=== PATIENT | male | born 1995 | race Caucasian/White ===

== ENCOUNTER 2017-01-21 15:01 | Emergency (ER) | payer SELFPAY ==
--- NOTE | 2017-01-21 15:38 | ED Physician Chart ---
Chief Complaint/HPI - Patient Information Date Seen:: 01/21/17 Time Seen:: 15:33 Chief Complaint:: numbness History of Present Illness:: pt was about to have sex w his gf(baby mom) a hr ago and had onset of tingly feeling over both sides of face/body. very anxious and doesnt feel right. no meds tried/taken. no mj pmh x anxiety and a 1x hx of renal failure which was txd w dialysis 1x in 2014. no edema. no OSULLIVAN. no cp. no uri sx. no fever. no rash. Vitals:: Vital Signs - 8 hr 01/21/17 15:01 Temp 97.9 F HR 71 RR 16 BP 155/87 O2 Sat % 100 Historian:: Patient, Other (gf/baby mom) Review of Systems - Review of Systems General/Constitutional: No fever, No chills, No weight loss, No weakness, No diaphoresis, No edema, No loss of appetite Skin: No skin lesions, No rash, No bruising Head: No headache, No light-headedness Eyes: No loss of vision, No pain, No diplopia ENT: No earache, No nasal drainage, No sore throat, No tinnitus Neck: No neck pain, No swelling, No thyromegaly, No stiffness, No mass noted Cardio Vascular: No chest pain, No palpitations, No PND, No orthopnea, No edema Pulmonary: SOB, No SOB, No cough, No sputum, No wheezing GI: No nausea, No vomiting, No diarrhea, No pain, No melena, No hematochezia, No constipation, No hematemesis G/U: No dysuria, No frequency, No hematuria Musculoskeletal: No bone or joint pain, No back pain, No muscle pain Endocrine: No polyuria, No polydipsia Psychiatric: No prior psych history, No depression, Anxiety, No suicidal ideation, No homicidal ideation, No auditory hallucination, No visual hallucination Hematopoietic: No bruising, No lymphadenopathy Allergic/Immuno: No urticaria, No angioedema Neurological: No syncope, No focal symptoms, No weakness, Paresthesia, No paresthesia, No headache, No seizure, No dizziness, No confusion, No vertigo Past Medical History - Past Medical History Past Medical History: Other (anxiety , 1x hx of renal issue 2015 txd w dialysis( details poor on hx)) Social History: Non Smoker, No Alcohol Psychiatricy History: Other (anxiety) Medication: Reviewed Family Medical History - Family Member Mother Other Medical History: denies family medical hx Physical Exam - Physical Examination General/Constitutional: Awake, Well-developed, well-nourished, Alert, No distress, GCS 15, Non-toxic appearing, Ambulatory Other Gen/Cons comments:: anxious. pt claims very weak and cant raise leg vs gravity..however if i straight leg raise his lower leg remains straight and doesnt drop. (pt appears to have no fxnal muscle loss). str/sens seem wnl. cn 2-12 wnl Head: Atraumatic Eyes: Lids, conjuctiva normal, PERRL, EOMI Skin: Nl inspection, No rash, No skin lesions, No ecchymosis, Well hydrated, No lymphadenopathy ENMT: External ears, nose nl, Nasal exam nl, Lips, teeth, gums nl Neck: Nontender, Full ROM w/o pain, No JVD, No nuchal rigidity, No bruit, No mass, No stridor Respiratory: Nl effort/Exclusion, Clear to Auscultation, No Wheeze/Rhonchi/Rales Cardio Vascular: RRR, No murmur, gallop, rubs, NL S1 S2 GI: No tenderness/rebounding/guarding, No organomegaly, No hernia, Normal BS's, Nondistended, No mass/bruits, No McBurney tenderness : No CVA tenderness Extremities: No tenderness or effusion, Full ROM, normal strength in all extremities, No edema, Normal digits & nails Neuro/Psych: Alert/oriented, DTR's symmetric, Normal sensory exam, Normal motor strength, Judgement/insight normal, Mood normal, Normal gait, No focal deficits Misc: normal gait, Normal back, No paraspinal tenderness Labs/Radiology/EKG Results - Lab Results Results: Laboratory Tests 01/21/17 01/21/17 01/21/17 15:41 15:41 15:41 WBC 12.6 H RBC 5.51 Hgb 16.9 Hct 49.3 H MCV 89.5 MCH 30.8 H MCHC Differential 34.4 RDW 12.1 Plt Count 212 MPV 8.5 Neutrophils % 76.3 Lymphocytes % 14.5 L Monocytes % 7.9 Eosinophils % 0.9 Basophils % 0.4 Sodium 136 Potassium 3.5 Chloride 105 Carbon Dioxide 26.8 Anion Gap 7.7 BUN 10 Creatinine 1.0 Est GFR ( Amer) > 60.0 Est GFR (Non-Af Amer) > 60.0 BUN/Creatinine Ratio 10.0 Glucose 91 Whole Bld Lactic Acid 1.43 Calcium 10.3 Total Bilirubin 1.2 H AST 24 ALT 27 Alkaline Phosphatase 102 Troponin I Total Protein 8.8 H Albumin 4.9 Globulin 3.9 Albumin/Globulin Ratio 1.3 01/21/17 15:41 WBC RBC Hgb Hct MCV MCH MCHC Differential RDW Plt Count MPV Neutrophils % Lymphocytes % Monocytes % Eosinophils % Basophils % Sodium Potassium Chloride Carbon Dioxide Anion Gap BUN Creatinine Est GFR ( Amer) Est GFR (Non-Af Amer) BUN/Creatinine Ratio Glucose Whole Bld Lactic Acid Calcium Total Bilirubin AST ALT Alkaline Phosphatase Troponin I 0.01 Total Protein Albumin Globulin Albumin/Globulin Ratio - Radiology Results Results: ct head nad - EKG Interpretations EKG Time:: 16:00 Rate & Rhythm: nsr 71 [place]: 45 Intervals: minor st elev w upward concavity v2/3 likely benign repol ED Septic Shock - . Is Septic Shock (SBP<90, OR Lactate>4 mmol\L) present?: No - <6hrs of presentation: Vital Signs: Vital Signs - 8 hr 01/21/17 15:01 Temp 97.9 F HR 71 RR 16 BP 155/87 O2 Sat % 100 Reassessment (Disposition) - Reassessment Reassessment Condition:: Improved - Diagnosis Diagnosis:: anxiety attack - Aftercare/Follow up Instructions Aftercare/Follow-Up Instructions:: Counseled pt & family regarding lab results/ diagnosis & need follow up Medication Prescribed:: ativan 0.5mg no 15 - Patient Disposition Discharge/Transfer:: Home Condition at Disposition:: Improved
[2017-01-21 15:53] LABS: % BASOPHILS 0.4 % (0.0-2.0); % EOSINOPHILS 0.9 % (0.0-5.0); % LYMPHOCYTES 14.5 % (20.0-50.0); % MONOCYTES 7.9 % (2.0-10.0); % NEUTROPHILS 76.3 % (40.0-80.0); HEMATOCRIT 49.3 % (39.0-49.0); HEMOGLOBIN 16.9 gm/dL (13.2-17.3); MEAN CELL VOLUME 89.5 fl (80-99); MEAN CORPUSCULAR HEMOGLOBIN 30.8 pg (26.0-30.0); MEAN CORPUSCULAR HGB CONC 34.4 pg (28.0-36.0); MEAN PLATELET VOLUME 8.5 fl; NEUTROPHILE ABSOLUTE 9.6 Th/cmm (1.8-8.0); PLATELET COUNT 212 Th/cmm (150-400); RED BLOOD COUNT 5.51 Mil/cmm (4.30-5.70); RED CELL DISTRIBUTION WIDTH 12.1 % (11.5-20.0)
[2017-01-21 15:57] LABS: WHITE BLOOD COUNT 12.6 Th/cmm (4.8-10.8)
[2017-01-21 16:05] LABS: ALB/GLOB RATIO 1.3 (1.0-1.8); ALKALINE PHOSPHATASE 102 U/L (34-104); ANION GAP 7.7 (7.0-16.0); BILIRUBIN,TOTAL 1.2 mg/dL (0.3-1.0); BUN - UREA NITROGEN 10 mg/dL (7-25); CALCIUM SERUM 10.3 mg/dL (8.6-10.3); CARBON DIOXIDE 26.8 mEq/L (21.0-31.0); CHLORIDE 105 mEq/L (98-107); GLUCOSE 91 mg/dL (70-105); POTASSIUM SERUM 3.5 mEq/L (3.5-5.1); SGOT 24 U/L (13-39); SGPT/ALT 27 U/L (7-52); SODIUM SERUM 136 mEq/L (136-145)
--- NOTE | 2017-01-21 16:45 | Diagnostic Imaging Report ---
CT scan of the brain without contrast History: Stroke, CVA Total DLP equals 654 CTDI equals 38.1 Axial sections were obtained from the base of the skull to the vertex. There is a normal ventricular system size. No focal parenchymal lesions are seen. No evidence of any mass effect or shift of midline structures. No extra-axial masses or abnormal fluid collections. Impression: No acute abnormalities
[2017-01-21 17:08] VITALS: BP 143/84
== END 2017-01-21 17:34 | disposition home or self-care (01) ==
LOC: ER 15:01
DX: F41.9 Anxiety disorder, unspecified (principal)
CPT/HCPCS: 99285; 96374; 93005; 70450; 84484; 36415; 83605; 85025; 80053; 87040; J2060